=== PATIENT | female | born 1955 | race Caucasian/White ===

== ENCOUNTER → 2021-02-24 13:25 | Outpatient (CLI) | payer MEDICARE, OTHER, SELFPAY ==
[2021-02-24 17:27] LABS: COVID19 -Nasal RAPID Negative (Negative)
== END ==
PROVIDERS: PCP Physician Assistant; Visit Provider Nurse Practitioner
DX: Z01.812 Encounter for preprocedural laboratory examination (principal); Z20.822 Contact with and (suspected) exposure to COVID-19
CPT/HCPCS: 87635; C9803

== ENCOUNTER 2021-02-25 14:04 | Day surgery (SDC) | payer MEDICARE, OTHER, SELFPAY ==
--- NOTE | 2021-02-25 | PATH_ITS ---
[facility] Accession Number: [id number] . 01 Material submitted: . PART A: ileo-cecal valve - IC VALVE POLYP PART B: colon - RANDOM COLON . 01 Clinical history: . B: DIARRHEA- R/O MICROSCOPIC COLITIS . 02 Diagnosis: A. IC Valve, Polyp, Biopsy: Tubular adenoma. . B. Random Colon, Biopsies: Colonic mucosa with no diagnostic abnormality. Negative for active, chronic, and microscopic colitis. Negative for dysplasia and malignancy. . MRV 02/27/2021 1019 Local . 02 Electronically signed: . Cathy Fung MD, Pathologist NPI- [id number] . 01 Gross description: . Part A: IC VALVE POLYP: Received in formalin is 1 fragment(s) of barbosa, soft tissue measuring 0.2 x 0.1 x 0.1 cm submitted entirely in 1 cassette(s) Part B: RANDOM COLON: Received in formalin are 3 fragment(s) of barbosa, soft tissue measuring 0.3 x 0.2 x 0.2 cm to 0.2 x 0.1 x 0.1 cm submitted entirely in 1 cassette(s) /JANET 02/26/2021 0443 Local . 02 Pathologist provided ICD-10: D12.0 . 02 CPT . 061590, [id number] Performed at: 01 [facility] [address], [place], [place] [id number] MD Tiago Wilhelm MD Phone: [phone] Performed at: 02 [facility] [place] [address] [place], [place] [id number] MD Cathy Fung MD Phone: [phone]
[2021-02-25 15:09] VITALS: BP 118/76; PULSE 78; RESP 18; TEMP 36.4; O2SAT 98; BMI 36.5
--- NOTE | 2021-02-25 15:26 | PM.HP.1 ---
History of Present Illness History of Present Illness Date Patient Seen: 02/25/21 Time Patient Seen: 15:27 Chief complaint: DX COLONOSCOPY W/POS BX Narrative: Change in bowel habit with a tendency todiarrhea Patient History Comment: I reviewed my office note from last month Family & Social History Social History: household members spouse Tobacco & Substance use: Smoking Status Former smoker alcohol intake never Substance Use Type marijuana Meds Home Medications and Allergies Home Medications Medication Instructions Recorded Confirmed Type albuterol sulfate 90 mcg/actuation 1 puff INH PRN PRN #0 07/16/17 02/25/21 History aerosol inhaler (Ventolin HFA) brimonidine 0.2 % eye drops 1 drp OU HS #0 07/16/17 02/25/21 History epinephrine 0.3 mg/0.3 mL 0.3 mg SQ PRN PRN #0 07/16/17 02/25/21 History injection, auto-injector (EpiPen 2-Hang) polyethylene glycol 3350 17 gram 17 gm PO QDAY #0 07/16/17 02/25/21 History oral powder packet (Miralax) acetaminophen 325 mg tablet 500 mg PO Q4HP PRN 02/25/21 02/25/21 History diazepam 5 mg tablet (Valium) 5 mg PO BID 02/25/21 02/25/21 History duloxetine 60 mg capsule,delayed 120 mg PO DAILY 02/25/21 02/25/21 History release gabapentin 300 mg capsule 300 mg PO TID 02/25/21 02/25/21 History isosorbide dinitrate 30 mg tablet 30 mg PO DAILY 02/25/21 02/25/21 History levothyroxine 100 mcg tablet 100 mcg PO DAILY 02/25/21 02/25/21 History metoprolol tartrate 25 mg tablet 20 mg PO DAILY 02/25/21 02/25/21 History naltrexone 50 mg tablet 8 mg PO DAILY 02/25/21 02/25/21 History oxybutynin chloride 5 mg 5 mg PO DAILY 02/25/21 02/25/21 History tablet,extended release 24 hr rosuvastatin 40 mg tablet 40 mg PO DAILY 02/25/21 02/25/21 History trazodone 50 mg tablet See Rx Instructions .ROUTE .COMPLEX 02/25/21 02/25/21 History Allergies Allergy/AdvReac Type Severity Reaction Status Date / Time iodine Allergy Severe ANAPHYLAXIS; Unverified 10/27/17 12:36 TOPICAL OK atorvastatin [ATORVASTATIN] AdvReac Unknown MUSCLE Unverified 10/27/17 12:36 CRAMPS anesthesia agents AdvReac Severe code was Uncoded 02/25/21 15:30 called x 2 with each surgery. Review of Systems Review of Systems ROS: Yes All systems reviewed with the patient and are negative except as otherwise documented Exam Vital Signs (past 8 hours): - 02/25/21 15:09 Temperature 97.5 F L Pulse Rate 78 Respiratory Rate 18 Blood Pressure 118/76 Pulse Oximetry 98 Oxygen Delivery Method Room Air Const General: cooperative and comfortable Orientation: alert HENMT Head: normocephalic Ears: external ears normal Nose: external nose normal Face and sinus: normal facial exam Mouth: oral mucosae normal Eyes General: appearance normal, both eyes and all related structures Neck Other: C collar Chest Chest: normal inspection of the chest Resp Effort & Inspection: normal respiratory effort Auscultation: clear to auscultation bilaterally Cardio Rate: regular rate Rhythm: regular rhythm Heart Sounds: no murmurs GI Inspection: normal to inspection Palpation: soft and No tender Auscultation: normal bowel sounds Skin General: no rashes or lesions noted and No jaundice Neuro General: patient alert and moves all extremities Cognition: normal cognition Speech: speech normal Extrem General: no pedal edema Psych Appearance: grossly normal Assessment & Plan Assessment & Plan narrative: Change in bowel habit. Diarrhea. Family history of colon cancer. Personal history of colon polyps. Colonoscopy is planned for today.
[2021-02-25] MEDS: SODIUM CHLORIDE 0.9% 1,000 ML 125 ML IV (15:28)
--- NOTE | 2021-02-25 15:32 | PM.PREOP ---
Pre-operative Note COVID-19 COVID-19 status: Negative Result date/Date tested (Pos, Neg/Pending): 02/24/21 Interval Note History & Physical reviewed/Exam performed by Physician: Yes Changes to H&P: No H&P completed within 30 days and has changed as indicated here:: no changes ASA Class (for procedural sedation): III
--- NOTE | 2021-02-25 16:38 | PM.OP.ENDO ---
Operative Date/Time/Diagnoses Date of procedure: 02/25/21 Time of procedure: 16:38 Pre-op diagnosis: Change in bowel habit diarrhea Post-op diagnosis: same Procedure & Clinicians Study performed: Colonoscopy with cold forceps polypectomy and biopsies Same procedure as scheduled: Yes Indications: Change in bowel habits diarrhea personal history of colon polyps Surgeon: Juventino Mckay Procedure Notes SCOAP/Timeout: Done Procedure in detail: After the risks and benefits were explained, written and verbal informed consent was obtained. The patient was brought into the procedure room and placed into the left lateral decubitus position. MAC was applied. Digital rectal examination was accomplished. The scope was introduced into the patient and advanced under direct visualization to the cecum as identified by the appendiceal orifice and ileocecal valve. The scope was slowly withdrawn to carefully examine the mucosa for any defects or lesions. Comprehensive imaging was accomplished throughout the rectum including the dentate line. The colon was decompressed, the scope was then removed from the patient who tolerated the procedure well. Pediatric colonoscope was utilized Bowel prep fair Scope withdrawal time: 10 minutes Sedation minutes: 25 Complications: none Impression: If patient had a rather lengthy redundant colon. Abdominal pressure and the stiffening annia were utilized to obtain cecal intubation. There was a diminutive polyp on the ileocecal valve. This was removed with cold forceps. I did not appreciate any evidence of macroscopic colitis. Random biopsies were taken for exclusion of microscopic colitis. Because of the redundancy of her colon and difficulty with which we had obtaining cecal intubation I could not navigate the scope fully up into the terminal ileum today. Mild hemorrhoids were noted on direct views through the anorectum. Endoscopic diagnosis 1. Redundant lengthy colon 2. Diminutive colon polyp 3. Mild grade 1 to grade 2 internal hemorrhoids Post-procedure Recommendations: Colonscopy in 5 years Plan for aftercare: 1. Await histopathology 2. Repeat colonoscopy will likely be suggested for 5 years time. Disposition: PACU
[2021-02-25 16:44] VITALS: BP 103/60; PULSE 80; RESP 18; TEMP 36.4; O2SAT 95
[2021-02-25 16:50] VITALS: BP 117/28; PULSE 80; RESP 11; TEMP 36.5; O2SAT 94
[2021-02-25 16:54] VITALS: BP 109/71; PULSE 78; RESP 12; TEMP 36.6; O2SAT 98
[2021-02-25 16:58] VITALS: BP 105/69; PULSE 76; RESP 13; TEMP 36.6; O2SAT 96
[2021-02-25 17:03] VITALS: BP 113/70; PULSE 69; RESP 12; TEMP 36.1; O2SAT 99
== END 2021-02-25 17:29 | disposition home or self-care (01) ==
LOC: ENDO 14:09
PROVIDERS: PCP Physician Assistant; Referring Provider Internal Medicine Gastroenterology; Visit Provider Internal Medicine Gastroenterology
PROC: 0DJD8ZZ Inspection of Lower Intestinal Tract, Via Natural or Artificial Opening Endoscopic (ICD-10-PCS; CPT 45378; principal; 2021-02-25 15:00)
DX: R19.4 Change in bowel habit (principal); R19.7 Diarrhea, unspecified; Q79.60 Ehlers-Danlos syndrome, unspecified; K21.9 Gastro-esophageal reflux disease without esophagitis; K22.0 Achalasia of cardia; K64.0 First degree hemorrhoids; D12.0 Benign neoplasm of cecum
CPT/HCPCS: 45380

== ENCOUNTER 2021-11-27 20:00 | Emergency (ER) | payer MEDICARE, OTHER, SELFPAY ==
[2021-11-27 20:10] VITALS: BP 135/105; PULSE 74; RESP 16; TEMP 36.6; O2SAT 96; BMI 36.3
--- NOTE | 2021-11-27 20:46 | PC.NURSE ---
Pt yelling in waiting area about how long the wait is. Pt has been in building for less than 1 hr. sitting up in wheelchair. AOx3. asking for pt to lay down because she has chronic back pain. advised that we have two full waiting areas and there is no place for pt to lay down. Pt refusing to go to CT. Advised by registration staff that pt left [facility].
--- NOTE | 2021-11-27 21:09 | PC.NURSE ---
Pt called the ED,Poonam initially answered the phone and then passed the call to me as the patient was screaming at her. I answered the phone and the person on the phone began screaming at me as well. I asked her to stop yelling at me and I would be happy to speak to her. She continued to scream over the phone saying that she was going to contact the president and the governor about how she was treated here. I told her since she left [facility] I couldn't help her but I would be happy to transfer her to my billposting supervisor. She was demanding the nurses name that triaged her which I told her I wasn't sure who triaged her and once again if she was unhappy with her service I would transfer her to my billposting supervisor. She continued to yell and scream at me which I said I was no longer engaging in this conversation and I transferred her to Polly's office.
== END 2021-11-27 20:48 | disposition left against medical advice (07) ==
PROVIDERS: Emergency Provider Emergency Medicine; PCP Physician Assistant
CPT/HCPCS: 99281